=== PATIENT | male | born 1930 | race Caucasian/White ===

== ENCOUNTER 2016-10-02 13:01 | Emergency (ER) | payer OTHER ==
[2016-10-02 13:22] VITALS: BMI 27.8
[2016-10-02 13:25] LABS: AUTOMATED BASOPHIL 0.3 % (0-2); AUTOMATED EOSINOPHIL 4.4 % (0-5); AUTOMATED LYMPH 20.2 % (17-44); AUTOMATED MONOCYTE 7.8 % (3-10); AUTOMATED NEUTROPHIL 67.3 % (45-76); MPV 7.8 fL (7.4-10.4)
[2016-10-02 13:37] LABS: PARTIAL THROMB. TIME 29.1 SEC (22-35); PT-INR 1.1
[2016-10-02 13:50] LABS: BLOOD UREA NITROGEN 16 MG/DL (9-20); CALCIUM 9.4 MG/DL (8.4-10.2); CALCULATED OSMOLALITY 261 MOs/Kg (270-290); CHLORIDE 99 mEq/L (98-107); GLUCOSE 96 mg/dL (70-99); SODIUM LEVEL 135 mEq/L (137-146); TOTAL PROTEIN 7.7 G/DL (6.3-8.2)
--- NOTE | 2016-10-02 13:52 | DIRPT ---
CLINICAL DATA: Acute confusion. EXAM: CT HEAD WITHOUT CONTRAST TECHNIQUE: Contiguous axial images were obtained from the base of the skull through the vertex without intravenous contrast. COMPARISON: None. FINDINGS: There is a background pattern of generalized brain atrophy. There are old infarctions seen affecting the cerebellum, left temporal lobe, basal ganglia, left frontal cortical and subcortical brain and left parietal cortical and subcortical brain. There is cytotoxic edema in the right temporal and parietal region consistent with acute/subacute infarction in the right middle cerebral artery territory. The area of involvement measures approximately 6 cm in size. No hemorrhage. The area of infarction shows mild swelling but there is no significant mass effect or shift. No evidence of neoplastic mass lesion. No hydrocephalus or extra-axial collection. Sinuses are clear. There is atherosclerotic calcification of the major vessels at the base of the brain. IMPRESSION: Acute/subacute infarction in the right temporal and parietal region consistent with right MCA distribution infarction. Mild swelling but no hemorrhage or mass effect. Numerous other old infarctions throughout the brain as outlined above. Electronically Signed By: Samuel Campo M.D. On: 10/02/2016 13:49
--- NOTE | 2016-10-02 14:28 | DIRPT ---
CLINICAL DATA: Generalized confusion, weakness, facial droop. EXAM: CHEST 2 VIEW COMPARISON: None. 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 Cardiomegaly without evidence of significant volume overload/ CHF. Probable mild scarring/atelectasis at each lung base. Lungs otherwise clear. No evidence of pneumonia. No pleural effusion seen. Mild degenerative change within the kyphotic thoracic spine. No acute- appearing osseous abnormality. IMPRESSION: 1. No acute findings. 2. Cardiomegaly. No evidence of significant volume overload/CHF. 3. Probable mild scarring/atelectasis at each lung base. Electronically Signed By: Mynor Jones M.D. On: 10/02/2016 14:25
--- NOTE | 2016-10-02 15:10 | EDPRACDOC ---
- General Information Information Source: Patient, Family Mode Of Arrival: Car - History of Present Illness Onset: 3 days ago Exact Onset of Symptoms: Unknown HPI: Pt states having trouble seeing and slight confusion x 3 days. Denies fever, headache, earache, sore throat, congestion, cough, cp, sob, abd pain, n/v, changes in bowel or bladder, rash, numbness. C/o generalized weakness. Symptoms Started: Reports: Gradually Symptoms Description: Constant Weakness: Bilateral: Generalized Symptoms: Reports: Change of vision Symptom Severity: Reports: Does not affect activitiy Relevant History of: Reports: SD Associated signs and symptoms:: Reports: None <Lavern Pineda - Last Filed: 10/02/16 16:03> <Shirley Trejo - Last Filed: 10/02/16 16:12> - General Information Chief Complaint: Generalized Weakness Stated Complaint: CONFUSION UNABLE TO SEE WELL Time Seen by Provider: 10/02/16 14:59 Home Medications: Home Medications Aspirin (Enteric Coated) [Ecotrin] 81 mg PO DAILY 10/02/16 Aspirin (Enteric Coated) [Ecotrin] 81 mg PO DAILY 10/02/16 Atorvastatin Calcium [Lipitor] 10 mg PO QHS 10/02/16 Budesonide/Formoterol Fumarate [Symbicort 160-4.5 Mcg Inhaler] 2 puff INH BID Carbidopa/Levodopa [Carbidopa-Levo ER 25-100 Tab] 1 tab PO QID 10/02/16 Clopidogrel Bisulfate [Plavix] 75 mg PO DAILY #30 tab 10/02/16 Furosemide [Lasix] 40 mg PO DAILY 10/02/16 Isosorbide Mononitrate [Isosorbide Mononitrate ER] 30 mg PO DAILY 10/02/16 Mirabegron [Myrbetriq] 50 mg PO DAILY 10/02/16 Oxybutynin [Ditropan] 5 mg PO QHS 10/02/16 Sertraline HCl 50 mg PO DAILY 10/02/16 Tamsulosin HCl [Flomax] 0.4 mg PO QHS 10/02/16 Tiotropium [place] [Spiriva] 18 mcg INH DAILY 10/02/16 Allergies/Adverse Reactions: Allergies Allergy/AdvReac Type Severity Reaction Status Date / Time levofloxacin [From Levaquin] Allergy Unknown Verified 10/02/16 15:14 ED Past Medical History - History Reviewed Yes Nurses notes reviewed and agree except as marked - Patient Medical History Cardiac History: Reports: Hypertension, Heart Attack, CABG Surgical History: Reports: CABG - Social Medical History Smoking Status: Never smoker ETOH: None Substance Abuse: None <Lavern Pineda - Last Filed: 10/02/16 16:03> EDM Review of Systems - Review of Systems Constitutional: Weakness Eyes: Blurred Vision Ears: No Symptoms Reported. negative: Pain, Hearing Loss, Drainage, Ear Pulling Throat: No Symptoms Reported. negative: Pain, Swelling Nose: No Symptoms Reported. negative: Congestion, Bleeding, Discharge, Injection, Swelling, Deformity, Ecchymosis, Tender, Abrasion, Laceration Mouth: No Symptoms Reported. negative: Pain, Drooling Respiratory: No Symptoms Reported. negative: Cough, Brassy Cough, Barky Cough, Shortness of Breath, Wheezing, Hemoptysis Cardiovascular: No Symptoms Reported. negative: Chest Pain, Palpitations, Syncope, Edema, Orthopnea, PND, Skin Mottling, Cyanosis Gastrointestinal: No Symptoms Reported. negative: Pain, Constipation, Nausea, Vomiting, Diarrhea, Melena, Formula Intolerance Genitourinary: No Symptoms Reported. negative: Dysuria, Hematuria, Frequency, Discharge, Bleeding, Testicular Pain, Neurological: Weakness Musculoskeletal: No Symptoms Reported. negative: Neck, Chestwall, Ribs, Back, Shoulder, Arm, Elbow, Forearm, Wrist, Hand, Pelvis, Hip, Femur, Knee, Leg, Ankle , Foot Integumentary: No Symptoms Reported. negative: Itching, Rash, Bruising, Wound Allergic/Immunologic: No Symptoms Reported. negative: Hives, Itching Hematologic: No Symptoms Reported. negative: Lymphadenopathy, Easy Bruising, Easy Bleeding Psychiatric: No Symptoms Reported. negative: Anxiety, Depression, Hallucinations, Insomnia, Suicidal <Pineda,Lavern E - Last Filed: 10/02/16 16:03> - Physical Exam Constitutional: Alert Oriented to: Time, Person, Place Last recorded Vital Signs: Last Vital Signs Temp 97.7 F 10/02/16 13:01 Pulse 56 L 10/02/16 15:00 Resp 20 10/02/16 15:00 BP 167/72 10/02/16 15:00 Pulse Ox 95 10/02/16 15:00 Oxygen Pulse Oxygen Saturation 95 O2 Device Room Air Oxygen Flow Rate Fraction of Inspired Oxygen ( FIO2) - HEENT Head: Normal ( normocephalic) Eye Exam: Normal (PERRL, EOMI, Sclera white) Oropharynx: Normal (Pharynx:Moist without exudate,Gums-no swelling) Tympanic Membrane: Normal ENT EAC: Normal TMJ: Normal Nose: No Symptoms Reported (septum midline) Neck: Normal (FROM, trachea at midline) - Respiratory/Cardiovascular Respiratory: Normal - CTA (BBS clear to auscultation without adventitious sounds ) Cardiovascular: Normal (RRR without murmur, gallop or rub) - GI Auscultation: Normal (NABS) Palpation: Normal (Soft,No rebound or guarding, non distended) Tenderness: Non tender - Musculoskeletal Back: Normal (Non-Tender) Extremities: Normal (Normal tone, Pulses 2+ No cyanosis or edema, FROM) - Integumentary Skin: Normal, Warm, Dry Lymphatics: Normal (no adenopathy) - Neurologic Memory Impaired: Normal Motor Function: Normal (Normal tone, Pulses 2+ No cyanosis or edema, FROM) Cranial Nerve: Normal (CN II-X11 intact sensation, strength 5/5) Cerebellar: Normal Mood Description: Normal Perception: Normal <Lavern Pineda - Last Filed: 10/02/16 16:03> - Physical Exam Last recorded Vital Signs: Last Vital Signs Temp 97.7 F 10/02/16 13:01 Pulse 56 L 10/02/16 15:00 Resp 20 10/02/16 15:00 BP 167/72 10/02/16 15:00 Pulse Ox 95 10/02/16 15:00 Oxygen Pulse Oxygen Saturation 95 O2 Device Room Air Oxygen Flow Rate Fraction of Inspired Oxygen ( FIO2) <Shirley Trejo - Last Filed: 10/02/16 16:12> NIH Stroke Scale Initial Evaluation Level of Consciousness: Alert LOC- Question: Answers Both Correctly LOC Commands: Both Task Correctly Best Gaze: Normal Facial Palsy: Normal Movement Motor Arm LEFT: No Drift Motor Arm RIGHT: No Drift Motor Leg LEFT: No Drift Motor Leg RIGHT: No Drift Limb Ataxia: Absent Sensory: Normal Best Language: No Aphasia Dysarthria: Normal Extinction and Inattention: No Abnormality (Neglect) - Comment Pt states he can see out of L eye if he rests the eye <MiriamLavern E - Last Filed: 10/02/16 16:03> - Differential Diagnosis CVA, Dehydration, Dysrhythmia, Electrolyte disorder, Hypoglycemia - Results 10/02/16 13:14 10/02/16 13:14 WBC 7.2 xk/uL (3.8-10.8) 10/02/16 13:14 RBC 4.99 xM/uL (4.70-6.10) 10/02/16 13:14 Hgb 14.7 g/dL (14.0-18.0) 10/02/16 13:14 Hct 43.9 % (42-52) 10/02/16 13:14 MCV 88 fL (80-94) 10/02/16 13:14 MCH 29.6 pg (27-32) 10/02/16 13:14 MCHC 33.6 g/dl (33-36) 10/02/16 13:14 RDW 13.9 % (11.5-14.5) 10/02/16 13:14 Plt Count 208 xk/uL (130-400) 10/02/16 13:14 MPV 7.8 fL (7.4-10.4) 10/02/16 13:14 Neut % (Auto) 67.3 % (45-76) 10/02/16 13:14 Lymph % (Auto) 20.2 % (17-44) 10/02/16 13:14 [place] % (Auto) 7.8 % (3-10) 10/02/16 13:14 Eos % (Auto) 4.4 % (0-5) 10/02/16 13:14 Baso % (Auto) 0.3 % (0-2) 10/02/16 13:14 Absolute Neuts (auto) 4.82 xk/uL (1.7-8.2) 10/02/16 13:14 Absolute Lymphs (auto) 1.44 xk/uL (0.65-4.75) 10/02/16 13:14 PT 11.2 SEC (9.2-11.2) 10/02/16 13:14 INR 1.1 10/02/16 13:14 APTT 29.1 SEC (22-35) 10/02/16 13:14 Sodium 135 mEq/L (137-146) L 10/02/16 13:14 Potassium 4.6 mEq/L (3.5-5.1) 10/02/16 13:14 Chloride 99 mEq/L (98-107) 10/02/16 13:14 Carbon Dioxide 27 mMOL/L (22-33) 10/02/16 13:14 Anion Gap 14 mEq/L (8-16) 10/02/16 13:14 BUN 16 MG/DL (9-20) 10/02/16 13:14 Creatinine 1.00 MG/DL (0.66-1.25) 10/02/16 13:14 Estimated GFR (MDRD) > 60 mL/min (>=60) 10/02/16 13:14 Glucose 96 mg/dL (70-99) 10/02/16 13:14 Calculated Osmolality 261 MOs/Kg (270-290) L 10/02/16 13:14 Calcium 9.4 MG/DL (8.4-10.2) 10/02/16 13:14 Total Bilirubin 1.0 MG/DL (0.2-1.3) 10/02/16 13:14 AST 27 IU/L (17-59) 10/02/16 13:14 ALT 28 IU/L (21-72) 10/02/16 13:14 Alkaline Phosphatase 85 IU/L (50-160) 10/02/16 13:14 Troponin I < 0.01 ng/mL (<.04) 10/02/16 13:14 Pae-M-Fxqumodofpz Pept 847 pg/mL (0-1800) 10/02/16 13:14 Total Protein 7.7 G/DL (6.3-8.2) 10/02/16 13:14 Albumin 4.2 G/DL (3.5-5.0) 10/02/16 13:14 Lab Results 10/02/16 10/02/16 10/02/16 13:14 13:14 13:14 WBC 7.2 RBC 4.99 Hgb 14.7 Hct 43.9 MCV 88 MCH 29.6 MCHC 33.6 RDW 13.9 Plt Count 208 MPV 7.8 Neut % (Auto) 67.3 Lymph % (Auto) 20.2 [place] % (Auto) 7.8 Eos % (Auto) 4.4 Baso % (Auto) 0.3 Absolute Neuts (auto) 4.82 Absolute Lymphs (auto) 1.44 PT 11.2 INR 1.1 APTT 29.1 Sodium 135 L Potassium 4.6 Chloride 99 Carbon Dioxide 27 Anion Gap 14 BUN 16 Creatinine 1.00 Estimated GFR (MDRD) > 60 Glucose 96 Calculated Osmolality 261 L Calcium 9.4 Total Bilirubin 1.0 AST 27 ALT 28 Alkaline Phosphatase 85 Troponin I < 0.01 Igo-P-Yrfbcrttsjy Pept 847 Total Protein 7.7 Albumin 4.2 - EKG EKG #1 EKG Time: 13:07 Rate: bpm: 57 [place]: LAD Rhythm: SB Block: None ST: Nonsp Comments: no old ekg - Diagnostic Imaging Head Image interpreted by: Radiologist IMPRESSION: Acute/subacute infarction in the right temporal and parietal region consistent with right MCA distribution infarction. Mild swelling but no hemorrhage or mass effect. Numerous other old infarctions throughout the brain as outlined above. Chest Image interpreted by: Radiologist IMPRESSION: 1. No acute findings. 2. Cardiomegaly. No evidence of significant volume overload/CHF. 3. Probable mild scarring/atelectasis at each lung base. - Additional Information Pt evaluated by rayna Peter to d/c home. <Lavern Pineda - Last Filed: 10/02/16 16:03> - Results 10/02/16 13:14 10/02/16 13:14 WBC 7.2 xk/uL (3.8-10.8) 10/02/16 13:14 RBC 4.99 xM/uL (4.70-6.10) 10/02/16 13:14 Hgb 14.7 g/dL (14.0-18.0) 10/02/16 13:14 Hct 43.9 % (42-52) 10/02/16 13:14 MCV 88 fL (80-94) 10/02/16 13:14 MCH 29.6 pg (27-32) 10/02/16 13:14 MCHC 33.6 g/dl (33-36) 10/02/16 13:14 RDW 13.9 % (11.5-14.5) 10/02/16 13:14 Plt Count 208 xk/uL (130-400) 10/02/16 13:14 MPV 7.8 fL (7.4-10.4) 10/02/16 13:14 Neut % (Auto) 67.3 % (45-76) 10/02/16 13:14 Lymph % (Auto) 20.2 % (17-44) 10/02/16 13:14 [place] % (Auto) 7.8 % (3-10) 10/02/16 13:14 Eos % (Auto) 4.4 % (0-5) 10/02/16 13:14 Baso % (Auto) 0.3 % (0-2) 10/02/16 13:14 Absolute Neuts (auto) 4.82 xk/uL (1.7-8.2) 10/02/16 13:14 Absolute Lymphs (auto) 1.44 xk/uL (0.65-4.75) 10/02/16 13:14 PT 11.2 SEC (9.2-11.2) 10/02/16 13:14 INR 1.1 10/02/16 13:14 APTT 29.1 SEC (22-35) 10/02/16 13:14 Sodium 135 mEq/L (137-146) L 10/02/16 13:14 Potassium 4.6 mEq/L (3.5-5.1) 10/02/16 13:14 Chloride 99 mEq/L (98-107) 10/02/16 13:14 Carbon Dioxide 27 mMOL/L (22-33) 10/02/16 13:14 Anion Gap 14 mEq/L (8-16) 10/02/16 13:14 BUN 16 MG/DL (9-20) 10/02/16 13:14 Creatinine 1.00 MG/DL (0.66-1.25) 10/02/16 13:14 Estimated GFR (MDRD) > 60 mL/min (>=60) 10/02/16 13:14 Glucose 96 mg/dL (70-99) 10/02/16 13:14 Calculated Osmolality 261 MOs/Kg (270-290) L 10/02/16 13:14 Calcium 9.4 MG/DL (8.4-10.2) 10/02/16 13:14 Total Bilirubin 1.0 MG/DL (0.2-1.3) 10/02/16 13:14 AST 27 IU/L (17-59) 10/02/16 13:14 ALT 28 IU/L (21-72) 10/02/16 13:14 Alkaline Phosphatase 85 IU/L (50-160) 10/02/16 13:14 Troponin I < 0.01 ng/mL (<.04) 10/02/16 13:14 Dik-I-Efbfvesoiem Pept 847 pg/mL (0-1800) 10/02/16 13:14 Total Protein 7.7 G/DL (6.3-8.2) 10/02/16 13:14 Albumin 4.2 G/DL (3.5-5.0) 10/02/16 13:14 Lab Results 10/02/16 10/02/16 10/02/16 13:14 13:14 13:14 WBC 7.2 RBC 4.99 Hgb 14.7 Hct 43.9 MCV 88 MCH 29.6 MCHC 33.6 RDW 13.9 Plt Count 208 MPV 7.8 Neut % (Auto) 67.3 Lymph % (Auto) 20.2 [place] % (Auto) 7.8 Eos % (Auto) 4.4 Baso % (Auto) 0.3 Absolute Neuts (auto) 4.82 Absolute Lymphs (auto) 1.44 PT 11.2 INR 1.1 APTT 29.1 Sodium 135 L Potassium 4.6 Chloride 99 Carbon Dioxide 27 Anion Gap 14 BUN 16 Creatinine 1.00 Estimated GFR (MDRD) > 60 Glucose 96 Calculated Osmolality 261 L Calcium 9.4 Total Bilirubin 1.0 AST 27 ALT 28 Alkaline Phosphatase 85 Troponin I < 0.01 Mml-I-Rzvunvsjcni Pept 847 Total Protein 7.7 Albumin 4.2 - Additional Information PT D/W DR. MEYER (HOSPITALIST). SINCE PT IS AMBULATING AND SWALLOWING AT BASELINE AND STROKE IS 3 DAYS OUT. NOTHING TO DO AN OUTPATIENT. SAID PT HAS KNOWN CAROTID ARTERY BLOCKAGES, BUT HE IS UNABLE TO HAVE SURGERY. PT'S DOES NOT WANT US TO HAVE PT GO TO ASSISTED LIVING. <Shirley Trejo - Last Filed: 10/02/16 16:12> Decision Time to Discharge: 16:03 (Dr Meyer states nothing to Evaluate in hospital, pt able to swallow and walk, add plavix and d/c home) - Departure Disposition: Home Education/Counseling Given To: Patient, Family Member Education/Counseling Given Regarding: Diagnosis, Treatment <Lavern Pineda Debbie - Last Filed: 10/02/16 16:03> - Departure Yes I personally saw and evaluated the patient. - Physician Consulted Hospitalist Provider Called: Hugh Meyer <Shirley Trejo - Last Filed: 10/02/16 16:12> - Departure Condition: Stable Final Diagnosis: CVA (cerebral vascular accident) Qualifiers: CVA mechanism: unspecified Qualified Code(s): I63.9 - Cerebral infarction, unspecified Instructions: Self Care Measures After a Stroke (ED) Referrals: Gloria Gonzalez MD [Primary Care Provider] - One Week Prescriptions: New Clopidogrel Bisulfate [Plavix] 75 mg PO DAILY #30 tab No Action Tamsulosin HCl [Flomax] 0.4 mg PO QHS Aspirin (Enteric Coated) [Ecotrin] 81 mg PO DAILY Sertraline HCl 50 mg PO DAILY Oxybutynin [Ditropan] 5 mg PO QHS Mirabegron [Myrbetriq] 50 mg PO DAILY Isosorbide Mononitrate [Isosorbide Mononitrate ER] 30 mg PO DAILY Furosemide [Lasix] 40 mg PO DAILY Tiotropium [place] [Spiriva] 18 mcg INH DAILY Carbidopa/Levodopa [Carbidopa-Levo ER 25-100 Tab] 1 tab PO QID Budesonide/Formoterol Fumarate [Symbicort 160-4.5 Mcg Inhaler] 2 puff INH BID Atorvastatin Calcium [Lipitor] 10 mg PO QHS Aspirin (Enteric Coated) [Ecotrin] 81 mg PO DAILY Additional Instructions: Return for worse or different symptoms.
[2016-10-02 16:26] VITALS: BP 160/67; PULSE 60; TEMP 97.4
== END 2016-10-02 17:10 | disposition home or self-care (01) ==
LOC: ED 13:01
DX: I63.9 Cerebral infarction, unspecified (principal); I10 Essential (primary) hypertension; Z79.899 Other long term (current) drug therapy; Z79.82 Long term (current) use of aspirin
CPT/HCPCS: 36415; 70450; 71020; 80053; 83880; 84484; 85025; 85610; 85730; 93005; 99281

== ENCOUNTER 2016-10-04 13:13 | Emergency (ER) | payer MEDICARE, OTHER ==
[2016-10-04 13:13] VITALS: BMI 27.8
[2016-10-04 13:58] LABS: AUTOMATED BASOPHIL 0.6 % (0-2); AUTOMATED EOSINOPHIL 6.3 % (0-5); AUTOMATED LYMPH 24.8 % (17-44); AUTOMATED MONOCYTE 8.6 % (3-10); AUTOMATED NEUTROPHIL 59.7 % (45-76)
[2016-10-04 14:20] LABS: PARTIAL THROMB. TIME 28.8 SEC (22-35); PT-INR 1.1
[2016-10-04 14:33] LABS: BLOOD UREA NITROGEN 18 MG/DL (9-20); CALCIUM 9.3 MG/DL (8.4-10.2); CALCULATED OSMOLALITY 269 MOs/Kg (270-290); CHLORIDE 102 mEq/L (98-107); GLUCOSE 86 mg/dL (70-99); SODIUM LEVEL 139 mEq/L (137-146); TOTAL PROTEIN 7.1 G/DL (6.3-8.2)
[2016-10-04] MEDS ORDERED: TRAMADOL HCL 50 MG TAB PO ONE (15:02)
--- NOTE | 2016-10-04 16:12 | DIRPT ---
CLINICAL DATA: 86-year-old male with acute to subacute right hemisphere infarct detected on CT 2 days ago following presentation of acute confusion. Progressive headache. Initial encounter. EXAM: MRI HEAD WITHOUT CONTRAST TECHNIQUE: Multiplanar, multiecho pulse sequences of the brain and surrounding structures were obtained without intravenous contrast. COMPARISON: Head CT without contrast 10/02/2016 FINDINGS: Moderate to large area of confluent restricted diffusion throughout the posterior right MCA territory corresponding to the recent CT finding. Confluent involvement of the superior right temporal lobe, lateral right occipital and inferior parietal lobes, posterior insula. Cytotoxic edema with gyral enlargement. No associated acute hemorrhage is evident. Trace leftward midline shift. Mass effect on the right temporal horn, but no ventriculomegaly. No contralateral left hemisphere or posterior fossa restricted diffusion. The deep beal matter nuclei are relatively acutely spared as well. Major intracranial vascular flow voids are preserved. There are superimposed chronic infarcts in the right cerebellum, left [employer] and left MCA territories with encephalomalacia. Mild chronic hemosiderin in the posterior left MCA and [employer] territorial involvement. Superimposed chronic mckeon radiata an globus pallidus lacune. No evidence of mass lesion, ventriculomegaly, extra-axial collection or acute intracranial hemorrhage. Cervicomedullary junction and pituitary are within normal limits. Negative for age visualized cervical spine. Visible internal auditory structures appear normal. Mild mastoid effusions. Negative nasopharynx. Negative paranasal sinuses, orbit soft tissues, and scalp soft tissues. Normal bone marrow signal. IMPRESSION: 1. Moderate to large acute posterior right MCA infarct with cytotoxic edema. Mild mass effect at this time with no evidence of associated hemorrhage. Noncontrast CT head for surveillance of mass effect and hemorrhage may be valuable if headache symptoms persist. 2. Advanced underlying chronic ischemia. Electronically Signed By: Maryuri Alvarez M.D. On: 10/04/2016 16:09
--- NOTE | 2016-10-04 17:23 | EDPRACDOC ---
- General Information Information Source: Family - History of Present Illness Exact Onset of Symptoms: Unknown Symptoms Started: Reports: Gradually Symptoms: Reports: Facial droop, Other (LEFT EYE VISION LOSS AND LEFT HEADACHE) Symptoms Description: Constant Symptom Severity: Reports: Unable to performs ADL's Weakness: Left: Face Associated signs and symptoms:: Reports: Headache HPI: PT WAS SEEN AT THIS FACILITY ON SUNDAY WITH ONSET OF LEFT EYE FACIAL DROOP AND LOSS OF SIGHT IN THE LEFT EYE. AT THAT TIME THE CT SCAN NOTED ACUTE ON CHRONIC CVA. HE RETURNS TODAY DUE TO INCREASING PAIN IN THE LEFT EYE. <Sumaya Aaron - Last Filed: 10/04/16 18:19> - General Information Mode of Arrival:: Car <Colin Mcpherson - Last Filed: 10/04/16 20:18> - General Information Chief Complaint: Neurological Deficit Present Stated Complaint: HEADACHE - STROKE YESTERDAY? Time Seen by Provider: 10/04/16 14:47 Home Medications: Home Medications Aspirin (Enteric Coated) [Ecotrin] 162 mg PO DAILY 10/02/16 Atorvastatin Calcium [Lipitor] 10 mg PO QHS 10/02/16 Budesonide/Formoterol Fumarate [Symbicort 160-4.5 Mcg Inhaler] 2 puff INH BID Carbidopa/Levodopa [Carbidopa-Levo ER 25-100 Tab] 1 tab PO QID 10/02/16 Furosemide [Lasix] 40 mg PO DAILY 10/02/16 Isosorbide Mononitrate [Isosorbide Mononitrate ER] 30 mg PO DAILY 10/02/16 Mirabegron [Myrbetriq] 50 mg PO DAILY 10/02/16 Oxybutynin [Ditropan] 5 mg PO QHS 10/02/16 Sertraline HCl 50 mg PO DAILY 10/02/16 Tamsulosin HCl [Flomax] 0.4 mg PO QHS 10/02/16 Tiotropium Rose [Spiriva] 18 mcg INH DAILY 10/02/16 Pramipexole [Mirapex] 0.125 mg PO QID 10/04/16 Allergies/Adverse Reactions: Allergies Allergy/AdvReac Type Severity Reaction Status Date / Time levofloxacin [From Levaquin] Allergy Unknown Verified 10/04/16 13:21 ED Past Medical History - History Reviewed Yes Nurses notes reviewed and agree except as marked <Sumaya Aaron - Last Filed: 10/04/16 18:19> - Patient Medical History Cardiac History: Reports: Hypertension, Heart Attack, CABG Surgical History: Reports: CABG - Social Medical History Smoking Status: Never smoker <Colin Mcpherson - Last Filed: 10/04/16 20:18> EDM Review of Systems - Review of Systems ROS Negative Except as Marked: Yes All systems reviewed and were negative except as marked <Sumaya Aaron - Last Filed: 10/04/16 18:19> - Physical Exam Constitutional: Alert, Confused (SOMEWHAT CONFUSED AT TIMES PER HIS NORM) Oriented to: Time, Person, Place Last recorded Vital Signs: Last Vital Signs Temp Pulse 52 L 10/04/16 16:50 Resp 18 10/04/16 16:50 BP 157/63 10/04/16 16:50 Pulse Ox 93 10/04/16 16:50 Oxygen Pulse Oxygen Saturation 93 O2 Device Room Air Oxygen Flow Rate Fraction of Inspired Oxygen ( FIO2) - HEENT Head: Normal ( normocephalic) Eye Exam: Other (DROOP TO LEFT EYE) Oropharynx: Normal (Pharynx:Moist without exudate,Gums-no swelling) Tympanic Membrane: Normal Nose: No Symptoms Reported (septum midline) Neck: Normal (FROM, trachea at midline) - Respiratory/Cardiovascular Respiratory: Normal - CTA (BBS clear to auscultation without adventitious sounds ) Cardiovascular: Bradycardia - GI Auscultation: Normal (NABS) Palpation: Normal (Soft,No rebound or guarding, non distended) Tenderness: Non tender St's Sign: Negative Rectal Exam: Deferred - Musculoskeletal Back: Normal (Non-Tender) Extremities: Normal (Normal tone, Pulses 2+ No cyanosis or edema, FROM) - Integumentary Skin: Normal, Warm, Dry Lymphatics: Normal (no adenopathy) - Neurologic Memory Impaired: Normal Motor Function: Normal (Normal tone, Pulses 2+ No cyanosis or edema, FROM) Cranial Nerve: Normal (CN II-X11 intact sensation, strength 5/5) Cerebellar: Normal Mood Description: Normal Perception: Normal <Sumaya Aaron - Last Filed: 10/04/16 18:19> - Physical Exam Last recorded Vital Signs: Last Vital Signs Temp Pulse 50 L 02/08/17 14:34 Resp 18 10/04/16 14:34 BP 141/67 10/04/16 14:34 Pulse Ox 92 10/04/16 14:34 Oxygen Pulse Oxygen Saturation 92 O2 Device Room Air Oxygen Flow Rate Fraction of Inspired Oxygen ( FIO2) <Colin Mcpherson - Last Filed: 10/04/16 20:18> NIH Stroke Scale Initial Evaluation Level of Consciousness: Alert LOC- Question: Answers Both Correctly LOC Commands: Both Task Correctly Best Gaze: Partial Gaze Palsy Visual: Partial Hemianopia Facial Palsy: Minor Paralysis Motor Arm LEFT: No Drift Motor Arm RIGHT: No Drift Motor Leg LEFT: No Drift Motor Leg RIGHT: No Drift Limb Ataxia: Absent Sensory: Normal Best Language: No Aphasia Dysarthria: Normal Extinction and Inattention: No Abnormality (Neglect) Score: 3out of42 <Sumaya Aaron - Last Filed: 10/04/16 18:19> - Differential Diagnosis CVA - Action Has patient received an Antithrombotic in the last 24hrs?: No Was an Antithrombotic given in the ED?: No Is patient a candidate for lytic therapy?: No Patient received TPA within 30 min of arrival?: No Reason IV Thrombolytics Contraindicated: Onset Undetermined - Results 10/04/16 13:30 10/04/16 13:30 WBC 6.6 xk/uL (3.8-10.8) 10/04/16 13:30 RBC 4.92 xM/uL (4.70-6.10) 10/04/16 13:30 Hgb 14.5 g/dL (14.0-18.0) 10/04/16 13:30 Hct 43.4 % (42-52) 10/04/16 13:30 MCV 88 fL (80-94) 10/04/16 13:30 MCH 29.4 pg (27-32) 10/04/16 13:30 MCHC 33.4 g/dl (33-36) 10/04/16 13:30 RDW 13.7 % (11.5-14.5) 10/04/16 13:30 Plt Count 207 xk/uL (130-400) 10/04/16 13:30 MPV 8.0 fL (7.4-10.4) 10/04/16 13:30 Neut % (Auto) 59.7 % (45-76) 10/04/16 13:30 Lymph % (Auto) 24.8 % (17-44) 10/04/16 13:30 Jenkins % (Auto) 8.6 % (3-10) 10/04/16 13:30 Eos % (Auto) 6.3 % (0-5) H 10/04/16 13:30 Baso % (Auto) 0.6 % (0-2) 10/04/16 13:30 Absolute Neuts (auto) 3.89 xk/uL (1.7-8.2) 10/04/16 13:30 Absolute Lymphs (auto) 1.58 xk/uL (0.65-4.75) 10/04/16 13:30 PT 11.3 SEC (9.2-11.2) H 10/04/16 13:30 INR 1.1 10/04/16 13:30 APTT 28.8 SEC (22-35) 10/04/16 13:30 Sodium 139 mEq/L (137-146) 10/04/16 13:30 Potassium 4.4 mEq/L (3.5-5.1) 10/04/16 13:30 Chloride 102 mEq/L (98-107) 10/04/16 13:30 Carbon Dioxide 27 mMOL/L (22-33) 10/04/16 13:30 Anion Gap 14 mEq/L (8-16) 10/04/16 13:30 BUN 18 MG/DL (9-20) 10/04/16 13:30 Creatinine 1.00 MG/DL (0.66-1.25) 10/04/16 13:30 Estimated GFR (MDRD) > 60 mL/min (>=60) 10/04/16 13:30 Glucose 86 mg/dL (70-99) 10/04/16 13:30 Calculated Osmolality 269 MOs/Kg (270-290) L 10/04/16 13:30 Calcium 9.3 MG/DL (8.4-10.2) 10/04/16 13:30 Total Bilirubin 0.6 MG/DL (0.2-1.3) 10/04/16 13:30 AST 28 IU/L (17-59) 10/04/16 13:30 ALT 25 IU/L (21-72) 10/04/16 13:30 Alkaline Phosphatase 81 IU/L (50-160) 10/04/16 13:30 Troponin I < 0.01 ng/mL (<.04) 10/04/16 13:30 Qfa-E-Bifxfhdemtj Pept 577 pg/mL (0-1800) 10/04/16 13:30 Total Protein 7.1 G/DL (6.3-8.2) 10/04/16 13:30 Albumin 4.0 G/DL (3.5-5.0) 10/04/16 13:30 Lab Results 10/04/16 10/04/16 10/04/16 13:30 13:30 13:30 WBC 6.6 RBC 4.92 Hgb 14.5 Hct 43.4 MCV 88 MCH 29.4 MCHC 33.4 RDW 13.7 Plt Count 207 MPV 8.0 Neut % (Auto) 59.7 Lymph % (Auto) 24.8 Jenkins % (Auto) 8.6 Eos % (Auto) 6.3 H Baso % (Auto) 0.6 Absolute Neuts (auto) 3.89 Absolute Lymphs (auto) 1.58 PT 11.3 H INR 1.1 APTT 28.8 Sodium 139 Potassium 4.4 Chloride 102 Carbon Dioxide 27 Anion Gap 14 BUN 18 Creatinine 1.00 Estimated GFR (MDRD) > 60 Glucose 86 Calculated Osmolality 269 L Calcium 9.3 Total Bilirubin 0.6 AST 28 ALT 25 Alkaline Phosphatase 81 Troponin I < 0.01 Gjl-M-Fvoypnqnedz Pept 577 Total Protein 7.1 Albumin 4.0 - EKG EKG #1 EKG Time: 14:36 -: Yes EKG interpreted by me Rate: bpm: 49 [place]: Normal Rhythm: SB Block: None Hypertrophy: None ST: Normal <Sumaya Aaron W - Last Filed: 10/04/16 18:19> - Re-evaluation Re-evaluation 1 Re-evaluation Time: 17:21 I saw the patient and reviewed the dx tests. his extremity strength is equal. he has no papilledema of the fundi. he is awake and alert. knows name, location birthdate. 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 based upon this, i feel he should be hospitalized at a facility with the availability of neuro and Neurosurg. - Results 10/04/16 13:30 10/04/16 13:30 WBC 6.6 xk/uL (3.8-10.8) 10/04/16 13:30 RBC 4.92 xM/uL (4.70-6.10) 10/04/16 13:30 Hgb 14.5 g/dL (14.0-18.0) 10/04/16 13:30 Hct 43.4 % (42-52) 10/04/16 13:30 MCV 88 fL (80-94) 10/04/16 13:30 MCH 29.4 pg (27-32) 10/04/16 13:30 MCHC 33.4 g/dl (33-36) 10/04/16 13:30 RDW 13.7 % (11.5-14.5) 10/04/16 13:30 Plt Count 207 xk/uL (130-400) 10/04/16 13:30 MPV 8.0 fL (7.4-10.4) 10/04/16 13:30 Neut % (Auto) 59.7 % (45-76) 10/04/16 13:30 Lymph % (Auto) 24.8 % (17-44) 10/04/16 13:30 Jenkins % (Auto) 8.6 % (3-10) 10/04/16 13:30 Eos % (Auto) 6.3 % (0-5) H 10/04/16 13:30 Baso % (Auto) 0.6 % (0-2) 10/04/16 13:30 Absolute Neuts (auto) 3.89 xk/uL (1.7-8.2) 10/04/16 13:30 Absolute Lymphs (auto) 1.58 xk/uL (0.65-4.75) 10/04/16 13:30 PT 11.3 SEC (9.2-11.2) H 10/04/16 13:30 INR 1.1 10/04/16 13:30 APTT 28.8 SEC (22-35) 10/04/16 13:30 Sodium 139 mEq/L (137-146) 10/04/16 13:30 Potassium 4.4 mEq/L (3.5-5.1) 10/04/16 13:30 Chloride 102 mEq/L (98-107) 10/04/16 13:30 Carbon Dioxide 27 mMOL/L (22-33) 10/04/16 13:30 Anion Gap 14 mEq/L (8-16) 10/04/16 13:30 BUN 18 MG/DL (9-20) 10/04/16 13:30 Creatinine 1.00 MG/DL (0.66-1.25) 10/04/16 13:30 Estimated GFR (MDRD) > 60 mL/min (>=60) 10/04/16 13:30 Glucose 86 mg/dL (70-99) 10/04/16 13:30 Calculated Osmolality 269 MOs/Kg (270-290) L 10/04/16 13:30 Calcium 9.3 MG/DL (8.4-10.2) 10/04/16 13:30 Total Bilirubin 0.6 MG/DL (0.2-1.3) 10/04/16 13:30 AST 28 IU/L (17-59) 10/04/16 13:30 ALT 25 IU/L (21-72) 10/04/16 13:30 Alkaline Phosphatase 81 IU/L (50-160) 10/04/16 13:30 Troponin I < 0.01 ng/mL (<.04) 10/04/16 13:30 Ihw-P-Uqtfqpugegg Pept 577 pg/mL (0-1800) 10/04/16 13:30 Total Protein 7.1 G/DL (6.3-8.2) 10/04/16 13:30 Albumin 4.0 G/DL (3.5-5.0) 10/04/16 13:30 Lab Results 10/04/16 10/04/16 10/04/16 13:30 13:30 13:30 WBC 6.6 RBC 4.92 Hgb 14.5 Hct 43.4 MCV 88 MCH 29.4 MCHC 33.4 RDW 13.7 Plt Count 207 MPV 8.0 Neut % (Auto) 59.7 Lymph % (Auto) 24.8 Jenkins % (Auto) 8.6 Eos % (Auto) 6.3 H Baso % (Auto) 0.6 Absolute Neuts (auto) 3.89 Absolute Lymphs (auto) 1.58 PT 11.3 H INR 1.1 APTT 28.8 Sodium 139 Potassium 4.4 Chloride 102 Carbon Dioxide 27 Anion Gap 14 BUN 18 Creatinine 1.00 Estimated GFR (MDRD) > 60 Glucose 86 Calculated Osmolality 269 L Calcium 9.3 Total Bilirubin 0.6 AST 28 ALT 25 Alkaline Phosphatase 81 Troponin I < 0.01 Qlt-W-Cjqpdkkbpoe Pept 577 Total Protein 7.1 Albumin 4.0 <Colin Mcpherson - Last Filed: 10/04/16 20:18> - Departure Education/Counseling Given To: Patient Education/Counseling Given Regarding: Diagnosis, Treatment, Prognosis, Follow Up <Sumaya Aaron - Last Filed: 10/04/16 18:19> - Physician Consulted Neurology Time Called: 17:46 Consult Reason: i discussed the case w dr davey of neuro at [facility]. he requested that the patient be transferred to the hospitalist service. the xfer center is working on reaching the hospitalist. Hospitalist Time Called: 18:17 Consult Reason: i discussed the case with dr Haji. he will accept pt to step down unit. hospitalist Time Called: 20:16 Consult Reason: i discussed the case w dr edmondson. she strongly suggested that the pt be xferred somewhere where neuro was present. she suggested [facility]; i had already called there. she suggested [facility]. neurology Time Called: 20:17 Consult Reason: i discussed w dr modi, neuro at [facility] [place] [place]. she is happy to care for pt. she will discuss w hospitalist at [facility]. xfer ctr will call w accepting doc and bed number. 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 Referrals: Gloria Gonzalez MD [Primary Care Provider] - One Week Prescriptions: No Action Tamsulosin HCl [Flomax] 0.4 mg PO QHS Sertraline HCl 50 mg PO DAILY Oxybutynin [Ditropan] 5 mg PO QHS Mirabegron [Myrbetriq] 50 mg PO DAILY Isosorbide Mononitrate [Isosorbide Mononitrate ER] 30 mg PO DAILY Furosemide [Lasix] 40 mg PO DAILY Tiotropium Rose [Spiriva] 18 mcg INH DAILY Carbidopa/Levodopa [Carbidopa-Levo ER 25-100 Tab] 1 tab PO QID Budesonide/Formoterol Fumarate [Symbicort 160-4.5 Mcg Inhaler] 2 puff INH BID Atorvastatin Calcium [Lipitor] 10 mg PO QHS Aspirin (Enteric Coated) [Ecotrin] 162 mg PO DAILY Pramipexole [Mirapex] 0.125 mg PO QID
[2016-10-04 22:07] VITALS: PULSE 60; TEMP 98
[2016-10-04 23:25] VITALS: BP 144/60
== END 2016-10-04 23:07 | disposition hospice, home (50) ==
LOC: ED 13:13
DX: I63.319 Cerebral infarction due to thrombosis of unspecified middle cerebral artery (principal); R29.810 Facial weakness; H53.8 Other visual disturbances; R29.703 NIHSS score 3
CPT/HCPCS: 36415; 70551; 80053; 83880; 84484; 85025; 85610; 85730; 93005; 99285; A9270; J3490